=== PATIENT | male | born 1940 | race Two or more races ===

== ENCOUNTER → 2024-11-08 | Outpatient (CLI) | payer MEDICARE, MEDICAID, SELFPAY ==
--- NOTE | 2024-11-08 09:55 | XR_ITS ---
Examination: PA lateral chest 2 views TECHNIQUE: Upright PA lateral chest 2 views Exam date and time: November 08, 2024 1027 hours INDICATIONS: Coughing this week FINDINGS: Mild pneumonia left base Normal heart size Right lung clear IMPRESSION: Mild pneumonia left base
== END | disposition home or self-care (01) ==
LOC: CDIM 09:46
PROVIDERS: PCP Family Medicine; Referring Provider Family Medicine; Visit Provider Family Medicine
DX: J18.9 Pneumonia, unspecified organism (principal); R05.3 Chronic cough
CPT/HCPCS: 71046

== ENCOUNTER 2025-04-25 14:30 | Outpatient (RCR) | payer MEDICARE, MEDICAID, SELFPAY ==
--- NOTE | 2025-04-10 16:06 | PT.OIERPT ---
PT OP Initial Eval Patient Information Outpatient Physical Therapy Treatment Date: 04/10/25 Visit Reasons: Lumbago with sciatica rt side Medical Diagnosis: M54.51 Treatment Dx #1: Back Pain Treatment Dx #2: BLE Weakness Start of Care: 04/10/25 Date of Onset: 5 years ago Smoking Status Smoking Status: Never smoker Initial Assessment Subjective: Pt is a 84 y/o male reports of chronic back pain (03/13) with BLE weakness R>L worsening 5 years ago. Pt's past MRI showed multiple disc bulge worse at L5-S1 7mm. Pt has limitation with sitting, standing, walking, lifting, chores, self care, balance, stairs, and performing recreational activities. Objective: L/S AROM (in sitting): all motions are WFL with end range pain into extension Hip PROM: all motions are WFL except IR bilaterally Hip MMTs: grossly 3+/5 Special Test (+) slump Muscle Length: Hs tightness R>L Assessment: Pt demonstrate back pain with mobility deficits and LE weakness leading to difficulty with ADLs. Pt will benefit from physical therapy to increase ROM, strength, and work on flexibility. Short Term and Custodial Goals 1) Increase L/S AROM WFL with less pain in 4 wks to be able to perform chores 2) Increase core strength WFL in 4 wks to be able to perform lifting activities 3) Increase hip MMTs grossly to 4-/5 in 4 wks to be able to walk more than 30 mins 4) Decrease back pain to 3/10 in 4 wks to be able to sit and stand more than 30 mins 5) Indep with HEP Treatment Plan 1) Manual Therapy 2) Therapeutic Activities 3) Therapeutic Exercises 4) Modalities (ice, heat) 5) Balance Training Frequency and Duration: 2 x wk for 4 wks Certification Dates: 04/10/25 to 07/11/25 Procedure Charges OP PT Eval Mod Complex 30 minutes: Yes
--- NOTE | 2025-04-21 16:22 | PT.ODAYNRPT ---
PT Outpatient Daily Note OP Daily Note Outpatient Physical Therapy Treatment Date: 04/21/25 Visit Reasons: Lumbago with sciatica rt side Subjective: Pt c/o burning sensation of R thigh. Objective: Please see flow sheet for ther ex list. Assessment: Pt instructed on prone on elbows exercise, encouraged to attempt for home. Pt was given a print out for pt. Plan: Continue with pOC. Assess response to treatment. Length of Time (minutes) of Treatment: 30 Minutes FOOD AND BEVERAGE SERVICE MANAGER Service Modifier Method I: Divide the number of min of care provided by the FOOD AND BEVERAGE SERVICE MANAGER/MONOGRAM AND LETTER PASTER by the total min of care provided then multiply by 100. If greater than 11 percent modifier is required. Method II: Divide the total time of care provided to patient by 10 (round to the nearest whole number) and add 1 min. to set the minimum time requirement. If treatment total was 60 min., then 10% of 6 min PT CQ modifier applied: CQ Modifier applied Procedure Charges Therapeutic Exercise 30 minutes: Yes
--- NOTE | 2025-04-25 16:12 | PT.ODAYNRPT ---
PT Outpatient Daily Note OP Daily Note Outpatient Physical Therapy Treatment Date: 04/25/25 Visit Reasons: Lumbago with sciatica rt side Subjective: Pt's back and leg is feeling okay. No New concerns to report. Objective: Please see flow chart for list of ther ex performed Assessment: added more hip exercises with minimal pain reported Plan: Continue with PT Length of Time (minutes) of Treatment: 30 Minutes Procedure Charges Therapeutic Exercise 30 minutes: Yes
== END 2025-05-04 23:59 | disposition home or self-care (01) ==
LOC: CPTX 14:30
PROVIDERS: PCP Family Medicine; Referring Provider Family Medicine; Visit Provider Family Medicine
DX: M54.51 Vertebrogenic low back pain (principal); R53.1 Weakness; R26.2 Difficulty in walking, not elsewhere classified; R26.89 Other abnormalities of gait and mobility; G89.29 Other chronic pain
CPT/HCPCS: 97110; 97162

== ENCOUNTER 2025-05-16 15:00 | Outpatient (RCR) | payer MEDICARE, MEDICAID, SELFPAY ==
--- NOTE | 2025-05-06 15:56 | PT.ODAYNRPT ---
PT Outpatient Daily Note OP Daily Note Outpatient Physical Therapy Treatment Date: 05/06/25 Visit Reasons: lumbago RT SIDE Subjective: Pt brought in by who both report progress with l/s symptoms and less complaints of pain. Objective: Please see flow sheet for ther ex list. Assessment: Pt requires verbal cues and demonstration to avoid lateral trunk flexion with standing hip abduction. Plan: Continue with poC. Length of Time (minutes) of Treatment: 30 Minutes Procedure Charges Therapeutic Exercise 30 minutes: Yes
--- NOTE | 2025-05-09 15:41 | PT.ODAYNRPT ---
PT Outpatient Daily Note OP Daily Note Outpatient Physical Therapy Treatment Date: 05/09/25 Visit Reasons: lumbago RT SIDE Subjective: Pt reports LBP has improved and notices legs are getting stronger. Pt also shared that she notices he can walk longer distances now and has not been complaining about his back. Objective: Please see flow sheet for ther ex list. Assessment: Pt presents in clinic with improved l/s symptoms progressing LE strengthening interventions. Verbal and tactile cues during squat exercise to widen CARLY, pt complied. Plan: assess response to treatment. Length of Time (minutes) of Treatment: 30 Minutes BASEBALL PITCHER Service Modifier Method I: Divide the number of min of care provided by the BASEBALL PITCHER/AUCTIONEER AUTOMOBILE by the total min of care provided then multiply by 100. If greater than 11 percent modifier is required. Method II: Divide the total time of care provided to patient by 10 (round to the nearest whole number) and add 1 min. to set the minimum time requirement. If treatment total was 60 min., then 10% of 6 min PT CQ modifier applied: CQ Modifier applied Procedure Charges Therapeutic Exercise 30 minutes: Yes
--- NOTE | 2025-05-14 14:22 | PT.OIERPT ---
PT OP Initial Eval Patient Information Outpatient Physical Therapy Treatment Date: 05/14/25 Visit Reasons: lumbago RT SIDE Medical Diagnosis: z47.89; M54.51 Treatment Dx #1: Back Pain Treatment Dx #2: BLE Weakness Start of Care: 05/14/25 Date of Onset: 03/25/25 Smoking Status Smoking Status: Never smoker Initial Assessment Subjective: Pt is a 84 y/o female s/p lumbar fusion (L3-S1) 03/25/25. Pt still has pain (/10) with BLE weakness and numbness. Pt has limitation with walking, standing, chores, self care, cooking, cleaning, and performing recreational activities. Objective: L/S AROM: all motions are 25% towards end range with pain Hip PROM: all motions are WFL Hip MMTs L: grossly 3/5 R: grossly 3+/5 Muscle Length: Hs tightness Assessment: Pt demonstrate L/S mobility deficits with BLE weakness s/p surgery leading to difficulty with ADLs. Pt will benefit from physical therapy to increase strength, flexibility, and work on core strength. Short Term and Fpc Goals 1) Increase L/S AROM WFL in 12 wks to be able to perform chores 2) Decrease back pain to 2/10 in 12 wks to be able to stand more than 30 mins 3) Increase core strength WFL in 12 wks to be able to perform recreational activities 4) Increase Hip MMTs grossly to 4-/5 in 12 wks to be able to walk more than 30 mins 5) Indep with HEP Treatment Plan 1) Manual Therapy 2) Therapeutic Activities 3) Therapeutic Exercises 4) Modalities (ice, heat) 5) Balance Training 6) Gait Training Frequency and Duration: 2 x wk for 12 wks Certification Dates: 05/14/25 to 08/13/25 Procedure Charges OP PT Eval Mod Complex 30 minutes: Yes
--- NOTE | 2025-05-14 15:54 | PT.ODAYNRPT ---
PT Outpatient Daily Note OP Daily Note Outpatient Physical Therapy Treatment Date: 05/14/25 Visit Reasons: lumbago RT SIDE Subjective: Pt mentioned his over endurance continues to decrease since 7 months ago. According to his Pt has been more unsteady on his feet lately. Pt wants to be able to feel like he felt 5 years ago. Objective: Please see flow chart for list of ther ex performed Assessment: 2 bouts of unsteadiness noted after getting off the sci fit and from supine to standing. Pt was assessed and mentioned he was only fatigue, however, after asking further questions. He's been more unsteady lately. Pt instructed to follow up with provider if unsteadiness continue to persist or worsening. Pt's exercises modified to more sitting due to feeling unsteady and more fatigue than usual today. Pt tolerate modified exercises Plan: Continue with PT Length of Time (minutes) of Treatment: 30 Minutes Procedure Charges Therapeutic Exercise 30 minutes: Yes
--- NOTE | 2025-05-16 15:26 | PT.ODS1RPT ---
PT OP Progress/Discharge Note Date of Service: 05/16/25 Progress Note/DC Note Progress Note/Discharge Note: DC Note Patient Information Visit Reasons: lumbago RT SIDE Medical Diagnosis: M54.51 Treatment Dx #1: Back Pain Treatment Dx #2: BLE Weakness Service Discharge Date: 05/16/25 Status Subjective: Pt's back and BLE weakness is doing okay and notice slight improvement. Pt has been able to walk, stand, perform chores, and recreational activities with less limitation. At this time Pt feels comfortable being release from care with exercises to continue at home. Objective: L/S AROM: all motions are WFL Hip PROM: all motions are WFL Hip MMTs: grossly 3+/5 Assessment: Pt demonstrate functional L/S mobility and BLE strength allowing him to resume ADLs. Pt will no longer benefit from physical therapy due to plateau towards goals. Pt was instructed on HEP last session and educated to continue exercises to maintain overall mobility. Pt performed all exercises safely, thank you for your referrals. Plan: D/C home with HEP and follow up with MD BROWN Procedure Charges Therapeutic Exercise 15 minutes: Yes Self Care/Home Mgmt 15 minutes: Yes
== END 2025-06-03 23:59 | disposition home or self-care (01) ==
LOC: CPTX 15:00
PROVIDERS: PCP Family Medicine; Referring Provider Family Medicine; Visit Provider Family Medicine
DX: M51.370 Other intervertebral disc degeneration, lumbosacral region with discogenic back pain only (principal); R26.2 Difficulty in walking, not elsewhere classified; R26.89 Other abnormalities of gait and mobility
CPT/HCPCS: 97110; 97162; 97535

== ENCOUNTER → 2025-06-23 | Outpatient (CLI) | payer MEDICARE, MEDICAID, SELFPAY ==
--- NOTE | 2025-06-23 | XR_ITS ---
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
== END | disposition home or self-care (01) ==
PROVIDERS: PCP Family Medicine; Referring Provider Family Medicine; Visit Provider Family Medicine
DX: I82.411 Acute embolism and thrombosis of right femoral vein (principal)
CPT/HCPCS: 93971

== ENCOUNTER → 2025-07-14 | Outpatient (CLI) | payer MEDICARE, MEDICAID, SELFPAY ==
[2025-07-14 12:54] LABS: PSA Medicare Annual Scrn 0.00 ng/mL (0-4.00)
== END | disposition home or self-care (01) ==
LOC: COPL 11:51
PROVIDERS: PCP Family Medicine; Referring Provider Family Medicine; Visit Provider Family Medicine
DX: Z85.46 Personal history of malignant neoplasm of prostate (principal)
CPT/HCPCS: 36415; 84153; G0103